=== PATIENT | female | born 1955 | race Caucasian/White ===

== ENCOUNTER → 2016-08-08 | Outpatient (CLI) | payer MEDICAID | LOC: FIMAGING 09:37 | PROVIDERS: ATTEND Nurse Practitioner | DX: D25.9 Leiomyoma of uterus, unspecified (principal) ==

== ENCOUNTER → 2017-07-06 | Outpatient (CLI) | payer MEDICAID | LOC: FLAB 10:51 | PROVIDERS: ATTEND Family Medicine | DX: M79.604 Pain in right leg (principal); M79.89 Other specified soft tissue disorders ==